=== PATIENT | male | born 1990 | race Caucasian/White ===

== ENCOUNTER 2024-10-26 23:55 | Emergency (ER) | payer BC, SELFPAY ==
[2024-10-27] VITALS (9 sets, daily range): BP systolic 118–145; BP diastolic 61–88; PULSE 53–98; RESP 16–18; TEMP 36.8; O2SAT 96–99; BMI 27.1
--- NOTE | 2024-10-27 00:16 | XRR_ITS ---
PROCEDURE INFORMATION: Exam: XR Lumbosacral Spine Exam date and time: 10/27/2024 12:18 AM Age: 34 years old Clinical indication: Low back pain and sciatica; Right; Patient HX: C/O RT sided lower back pain. History of sciatica; Additional info: Acute R side lbp, sciatica TECHNIQUE: Imaging protocol: Radiologic exam of the lumbosacral spine. Views: 2 or 3 views. COMPARISON: No relevant prior studies available. FINDINGS: Bones/joints: Normal. No acute fracture. Normal alignment. Soft tissues: Unremarkable. XR/XR lumbar spine 2-3V* [id number] IMPRESSION: No acute findings.
[2024-10-27] MEDS: orphenadrine 30 mg/mL Inj 2 mL 60 MG IM (00:31)
[2024-10-27] MEDS: ketorolac 60 mg/2 mL INJ IM (00:31)
--- NOTE | 2024-10-27 00:39 | W.ED.BACK ---
HPI - Back Pain/Injury General: Chief Complaint: Back Pain/Injury Stated Complaint: Lower Back Pain Time Seen by Provider: 10/26/24 23:59 History of Present Illness: Patient presents to the ER with complaints of right lower back pain that radiates to his hip down the posterior side of his leg to his knee. Has been going on for about the last week however actually worse this morning to the point his had to help him up off the toilet. Patient denies any bowel or bladder issues. He has not had any chronic back pain. He thinks he may have lifted his daughter up to his bed a little crooked or off and started this process. Related Data Previous Rx's Medication Instructions Recorded cephalexin 500 mg capsule 500 mg PO BID #14 caps 03/02/21 meloxicam 7.5 mg tablet 7.5 mg PO .Twice daily #14 tabs 10/27/24 prednisone 50 mg tablet 50 mg PO DAILY #5 tabs 10/27/24 Allergies Allergy/AdvReac Type Severity Reaction Status Date / Time No Known Allergies Allergy Verified 10/27/24 00:14 Review of Systems General: Reports: 10 or more systems reviewed and unremarkable except in HPI and below Physical Exam Const: COMMON NORMALS: no acute distress, average body habitus, patient oriented x3, no limitations, healthy appearing, alert and well nourished HENMT: COMMON NORMALS: normocephalic, hearing grossly normal bilaterally, external ears normal, Normal external nose present and moist oral mucous membranes HEAD & SCALP: normocephalic NOSE: Normal external nose present EXTERNAL EAR: Yes external ears normal Neck/C-Spine: COMMON NORMALS: no JVD Chest: COMMONS NORMALS: normal inspection of the chest and normal palpation of entire chest wall Resp: COMMON NORMALS: normal respiratory effort, No retractions, No use of accessory muscles and clear to auscultation bilaterally AUSCULTATION: clear to auscultation bilaterally Cardio: COMMON NORMALS: no JVD, regular rate, regular rhythm, S1 normal heart sound present, S2 normal heart sound present, No gallops present (Cardio), No clicks present (Cardio), No murmurs present (Cardio) and No rub (Cardio) RATE: regular rate RHYTHM: regular rhythm HEART SOUNDS: S1 normal heart sound present and S2 normal heart sound present GI: COMMON NORMALS: Normal to inspection, nondistended, normoactive bowel sounds present, Soft to palpation, non-tender, No hepatosplenomegaly present and no masses PALPATION: Yes Soft to palpation and Yes No hepatosplenomegaly present Back/Pelvis: OTHER: Mild tenderness to palpation right lower paraspinal lumbar musculature, right SI joint region. No other obvious abnormality. Neuro: COMMON NORMALS: patient oriented x3 SENSORIUM/ORIENTATION: Yes alert Course Vital Signs: Vital signs: Vital Signs Temperature 98.2 F 10/27/24 00:07 Pulse Rate 60 10/27/24 00:36 Respiratory Rate 16 10/27/24 00:36 Blood Pressure 145/88 10/27/24 00:36 Pulse Oximetry 97 10/27/24 00:36 Oxygen Delivery Me thod Room Air 10/27/24 00:36 MDM - Back Pain/Injury Medical Decision Making X-ray lumbar spine is negative. Patient is given Toradol 60 mg Norflex 60 mg IM which helped improve patient's pain. Patient was discharged home to follow-up with his PCP. Medical Records I reviewed the patient's medical records. Labs I reviewed the patient's lab results. Radiology Impressions Lumbar Spine X-Ray 10/27/24 00:16 IMPRESSION: No acute findings. All radiology interpretation(s) finalized by discharge Discharge Plan Discharge Patient Disposition: Home Clinical Impression: Strain of lumbar region Qualifiers: Encounter type: initial encounter Qualified Code(s): S39.012A - Strain of muscle, fascia and tendon of lower back, initial encounter Condition: Stable Prescriptions: New meloxicam 7.5 mg tablet 7.5 mg PO .Twice daily Qty: 14 0RF prednisone 50 mg tablet 50 mg PO DAILY Qty: 5 0RF No Action cephalexin 500 mg capsule 500 mg PO BID Qty: 14 0RF Discharge Orders: Discharge ED (Routine); Ordered 10/27/24 Ordered By: Grupo Hess Patient Instructions: Low Back Strain (ED), Acute Low Back Pain (ED) Activity Restrictions/Additional Instructions: Your x-ray is read off by the radiologist as no acute fracture, you have been prescribed pain medicine and anti-inflammatory steroid. Please pick them up and take them as directed. Please follow-up with your family practice physician in the next 7 days for further evaluation and treatment if needed. [facility] Please realize that you were seen in the emergency department and that we are providing you with an emergency medical screening exam and this may not be a complete and all exclusive of all testing and/or medical workup we may need to determine your element or severity of your illness. It is very important that you follow-up as instructed with your primary care provider or specialist for the additional evaluation and to discuss your medical treatment plan. You may return to the emergency department should you have concerns or if your condition changes or worsens in any way. Coding Level of Care Code ED Director Digital Strategy for Daisy Gray
== END 2024-10-27 02:10 | disposition home or self-care (01) ==
PROVIDERS: Emergency Provider Emergency Medicine
DX: S39.012A Strain of muscle, fascia and tendon of lower back, initial encounter (principal); X58.XXXA Exposure to other specified factors, initial encounter
CPT/HCPCS: 72100; 96372; 99284; J1885; J2360